=== PATIENT | female | born 1940 | race Caucasian/White ===

== ENCOUNTER → 2016-06-21 | Outpatient (REF) | payer MEDICARE ==
[~2016-06-21] MED LIST: ACET50TA PO; ACET65TA PO; ALBU17IN INH; ALBU83IN IN; ALPR0.25 PO; ANTI25TA PO; BISO10TA2 OR; BISO5TAB5 PO; BISOPROLOL PO; COLA100C2 OR; COLA50CA3 PO; DRISDOL; FLON0.05; IBUP200T2 PO; IBUP600T OR; LIPI10TA OR; MIRA255PW PO; MIRALEX PO; NEUPOGEN SC; OMEP20CA3 PO; OMEP20TA7 OR; ONDA2VL IV; PERC5TAB8 PO; VITAMIN D PO; XANA0.25 PO; [UNRECOGNIZED DRUG - CODE] SQ
== END ==
LOC: M LAB REF 12:17
PROVIDERS: ATTEND Internal Medicine Medical Oncology
DX: C57.00 Malignant neoplasm of unspecified fallopian tube (principal)

== ENCOUNTER → 2016-07-18 | Outpatient (REF) | payer MEDICARE | LOC: M LAB REF 16:31 | PROVIDERS: ATTEND Internal Medicine Medical Oncology | DX: C57.00 Malignant neoplasm of unspecified fallopian tube (principal) ==

== ENCOUNTER → 2016-07-28 | Outpatient (CLI) | payer MEDICARE ==
[~2016-07-28] MED LIST changes: +GASTROGRAFIN SOLUTION 30ML (Q9963) As Ordered ONE; +ISOVUE-370 76% 100ML VIAL (Q9967) As Ordered ONE
--- NOTE | 2016-07-28 17:51 | REP ---
CT ABDOMEN AND PELVIS WITH AND WITHOUT CONTRAST: TECHNIQUE: Axial noncontrast images through the abdomen followed by contrast-enhanced images through the abdomen and pelvis using 100 mL Isovue 370 intravenous contrast material, with coronal and sagittal reformations. COMPARISON: 01/01/2016 and 06/19/2015. In the visualized lung bases 2 ill-defined nodular opacities in the right lower lobe are unchanged. No new abnormalities opacities are seen. The liver demonstrates no mass. Dilated common bile duct is unchanged. The pancreatic duct is dilated in the region of the head of the pancreas, unchanged. The spleen, adrenals, pancreas and left kidney are otherwise unremarkable. There appears to be a tiny cyst in the mid right kidney. There is no hydroureteronephrosis. There is no abdominal aortic aneurysm. There is no free air or free fluid. There is no bowel wall thickening. Two small midline anterior abdominal wall hernias are seen just above the umbilicus. These were present on the prior study. Scattered diverticula are seen of the colon without acute diverticulitis. In the pelvis there is enlarged lymph node along the left pelvic sidewall 1.3 cm in diameter. This has increased in size since the 01/01/2016 exam. At that time it was less than 1 cm in short axis. That same lymph node was enlarged on the 06/19/2015 exam, measuring about 1.5 cm. No other adenopathy is seen and there is no other evidence of pelvic mass. Urinary bladder is mildly distended and grossly unremarkable. IMPRESSION: Enlarged lymph node along the left pelvic sidewall measures 1.[address] exam of 01/01/2016 it was less than 1 cm. On the exam of 06/19/2015 it was 1.5 cm. No other evidence of new adenopathy or mass. The remainder of the exam is stable. Signed by Silas Castellanos MD 07/29/2016 03:19 P
== END ==
LOC: M RAD 14:30
PROVIDERS: ATTEND Advanced Practice Midwife
DX: Z51.89 Encounter for other specified aftercare (principal); Z85.44 Personal history of malignant neoplasm of other female genital organs; R59.0 Localized enlarged lymph nodes
CPT/HCPCS: 74178; Q9963; Q9967

== ENCOUNTER → 2016-08-02 | Outpatient (REF) | payer MEDICARE ==
[~2016-08-02] MED LIST changes: -GASTROGRAFIN SOLUTION 30ML (Q9963) As Ordered ONE; -ISOVUE-370 76% 100ML VIAL (Q9967) As Ordered ONE
== END ==
LOC: M LAB REF 16:26
PROVIDERS: ATTEND Internal Medicine Medical Oncology
DX: C79.61 Secondary malignant neoplasm of right ovary (principal); C77.5 Secondary and unspecified malignant neoplasm of intrapelvic lymph nodes; C78.00 Secondary malignant neoplasm of unspecified lung; C78.6 Secondary malignant neoplasm of retroperitoneum and peritoneum; C57.01 Malignant neoplasm of right fallopian tube

== ENCOUNTER → 2016-08-30 | Outpatient (REF) | payer MEDICARE | LOC: M LAB REF 17:04 | PROVIDERS: ATTEND Internal Medicine Medical Oncology | DX: C57.00 Malignant neoplasm of unspecified fallopian tube (principal) ==

== ENCOUNTER → 2016-09-19 | Outpatient (CLI) | payer MEDICARE ==
--- NOTE | 2016-09-19 15:46 | REPMRS ---
Patient History The patient states she had a clinical breast exam in Patient is postmenopausal and has history of ovarian cancer. Family history of breast cancer in sister at age 50 or over and breast cancer in mother under age 50. Digital Woman Screen Mammo: September 19, 2016 - Exam #: [id number] Bilateral CC and MLO view(s) were taken. Technologist: Lorenza Graves, Technologist Prior study comparison: July 01, 2015, right breast digital mammo diagnostic unilateral, performed at [facility]. June 22, 2015, digital woman screen mammo performed at [facility]. June 18, 2014, bilateral digital mammo screening bilat, performed at [facility]. FINDINGS: There are scattered fibroglandular densities. There is an [id number] projecting over the right axilla. There has been no change in the appearance of the mammogram from the prior studies. There is a mild amount of scattered fibroglandular density which is fairly symmetric. There is no interval development of dominant mass, architectural distortion, or clustered microcalcification suggestive of malignancy. ASSESSMENT: BI-RADS/ACR category 1 mammogram. Negative. Recommendation Routine screening mammogram in 1 year (for women over age 40). This mammogram was interpreted with the aid of an FDA-approved computer-aided dectection system. Electronically Signed By: Chong Hamilton MD 09/19/16 [id number]
--- NOTE | 2016-09-21 09:59 | DEXA ---
AP SPINE L1 - L4 0.934 -2.1 0.0 LT FEMUR TOTAL 0.859 -1.2 0.9 RT FEMUR TOTAL 0.854 -1.2 0.9 TOTAL BODY TOTAL OTHER DUAL FEMUR FRAX* ASSESSMENT Risk factors: Premature menopause. 10 year probability of fracture Major osteoporotic fracture 15.8 % Hip fracture 4.7 % COMMENTS: There is low bone density of the spine and hips. FOLLOW-UP: Recommendation for the next bone density exam: 2 years. МАРИНАD
== END ==
LOC: M WHC 14:55
PROVIDERS: ATTEND Internal Medicine Medical Oncology
DX: Z12.31 Encounter for screening mammogram for malignant neoplasm of breast (principal); M85.80 Other specified disorders of bone density and structure, unspecified site; M81.0 Age-related osteoporosis without current pathological fracture
CPT/HCPCS: 77080; G0202

== ENCOUNTER → 2016-09-23 | Outpatient (REF) | payer MEDICARE ==
[2016-09-23 10:59] LABS: ALBUMIN 3.7 GM/DL (3.2-5.2); ALBUMIN/GLOBULIN RATIO 1.09 (1.00-1.93); ALKALINE PHOSPHATASE 59 U/L (45-117); ALT/SGPT 22 U/L (12-78); ANION GAP 5 MEQ/L (8-16); AST/SGOT 14 U/L (15-37); BILIRUBIN,TOTAL 0.4 MG/DL (0.2-1.0); BLOOD UREA NITROGEN 23 MG/DL (7-18); CALCIUM LEVEL 9.3 MG/DL (8.8-10.2); CARBON DIOXIDE LEVEL 31 MEQ/L (21-32); CHLORIDE LEVEL 104 MEQ/L (98-107); CHOLESTEROL LEVEL 248 MG/DL (<200); CREATININE FOR GFR 0.77 MG/DL (0.55-1.02); GLOMERULAR FILTRATION RATE > 60.0 (>39); GLUCOSE, FASTING 103 MG/DL (83-110); POTASSIUM SERUM 4.2 MEQ/L (3.5-5.1); SODIUM LEVEL 140 MEQ/L (136-145); TOTAL PROTEIN 7.1 GM/DL (6.4-8.2); TRIGLYCERIDES LEVEL 130 MG/DL (<150)
== END ==
LOC: M SFHCPLAZ 08:52
PROVIDERS: ATTEND Internal Medicine
DX: R73.01 Impaired fasting glucose (principal); E78.00 Pure hypercholesterolemia, unspecified

== ENCOUNTER → 2016-09-27 | Outpatient (REF) | payer MEDICARE | LOC: M LAB REF 16:36 | PROVIDERS: ATTEND Internal Medicine Medical Oncology | DX: C57.00 Malignant neoplasm of unspecified fallopian tube (principal) ==

== ENCOUNTER → 2016-11-01 | Outpatient (REF) | payer MEDICARE | LOC: M LAB REF 17:29 | PROVIDERS: ATTEND Internal Medicine Medical Oncology | DX: C56.9 Malignant neoplasm of unspecified ovary (principal) ==

== ENCOUNTER → 2016-11-10 | Outpatient (CLI) | payer MEDICARE ==
[~2016-11-10] MED LIST changes: +GASTROGRAFIN SOLUTION 30ML (Q9963) As Ordered ONE; +ISOVUE-370 76% 100ML VIAL (Q9967) As Ordered ONE
--- NOTE | 2016-11-10 15:09 | REP ---
CT of the abdomen pelvis without and with IV contrast and with bowel contrast, multiphase imaging: Comparison is 07/28/2016. On the comparison study where there was a 13 mm lymph node along the left pelvic sidewall. This lymph node today measures 19 x 21 mm. There is no other pelvic adenopathy. There is no pelvic ascites. There is diverticulosis of the descending colon, sigmoid colon, transverse colon as previously without diverticulitis. Within the visualized lung kirkpatrick, there are are two nodular densities in the right lower lobe, unchanged. The hepatic parenchyma is homogeneous on all phases of the study. The gallbladder surgically absent. There is compensatory dilatation of the common duct as previously. The pancreatic duct is mildly dilated as previously. The spleen, adrenals and kidneys are unchanged unremarkable. The abdominal aorta is unchanged unremarkable. There is no mesenteric adenopathy or ascites. There is no bowel distension. The bladder is unremarkable. Vaginal cuff and adnexa are unremarkable. Impression: The patient's known enlarged pelvic left sidewall lymph node has increased in size. There is no other interval change. Signed by Silas Mckeon MD 11/10/2016 03:00 P
== END ==
LOC: M RAD 11:01
PROVIDERS: ATTEND Internal Medicine Medical Oncology
DX: C57.00 Malignant neoplasm of unspecified fallopian tube (principal)
CPT/HCPCS: 74178; Q9963; Q9967

== ENCOUNTER → 2017-01-02 | Outpatient (REF) | payer MEDICARE ==
[~2017-01-02] MED LIST changes: -GASTROGRAFIN SOLUTION 30ML (Q9963) As Ordered ONE; -ISOVUE-370 76% 100ML VIAL (Q9967) As Ordered ONE
== END ==
LOC: M LAB REF 17:12
PROVIDERS: ATTEND Internal Medicine Medical Oncology
DX: C57.00 Malignant neoplasm of unspecified fallopian tube (principal)

== ENCOUNTER → 2017-01-25 | Outpatient (REF) | payer MEDICARE ==
[2017-01-25 12:07] LABS: ALBUMIN 3.7 GM/DL (3.2-5.2); ALBUMIN/GLOBULIN RATIO 1.06 (1.00-1.93); ALKALINE PHOSPHATASE 70 U/L (45-117); ALT/SGPT 22 U/L (12-78); ANION GAP 4 MEQ/L (8-16); AST/SGOT 17 U/L (15-37); BILIRUBIN,TOTAL 0.3 MG/DL (0.2-1.0); BLOOD UREA NITROGEN 13 MG/DL (7-18); CARBON DIOXIDE LEVEL 32 MEQ/L (21-32); CHLORIDE LEVEL 106 MEQ/L (98-107); CHOLESTEROL LEVEL 260 MG/DL (<200); GLOMERULAR FILTRATION RATE > 60.0 (>39); GLUCOSE, FASTING 100 MG/DL (83-110); POTASSIUM SERUM 4.2 MEQ/L (3.5-5.1); SODIUM LEVEL 142 MEQ/L (136-145); TOTAL PROTEIN 7.2 GM/DL (6.4-8.2); TRIGLYCERIDES LEVEL 208 MG/DL (<150)
== END ==
LOC: M SFHCPLAZ 09:02
PROVIDERS: ATTEND Internal Medicine
DX: R03.0 Elevated blood-pressure reading, without diagnosis of hypertension (principal); R73.01 Impaired fasting glucose; E78.00 Pure hypercholesterolemia, unspecified

== ENCOUNTER → 2017-01-31 | Outpatient (REF) | payer MEDICARE | LOC: M LAB REF 17:10 | PROVIDERS: ATTEND Internal Medicine Medical Oncology | DX: C57.00 Malignant neoplasm of unspecified fallopian tube (principal) ==

== ENCOUNTER → 2017-02-28 | Outpatient (REF) | payer MEDICARE | LOC: M LAB REF 17:33 | PROVIDERS: ATTEND Internal Medicine Medical Oncology | DX: C57.00 Malignant neoplasm of unspecified fallopian tube (principal) ==

== ENCOUNTER → 2017-03-30 | Outpatient (REF) | payer MEDICARE | LOC: M LAB REF 18:18 | PROVIDERS: ATTEND Internal Medicine Medical Oncology | DX: C57.00 Malignant neoplasm of unspecified fallopian tube (principal) ==

== ENCOUNTER → 2017-04-24 | Outpatient (CLI) | payer MEDICARE ==
[~2017-04-24] MED LIST changes: -ACET50TA PO; -ACET65TA PO; -ALBU17IN INH; -ALBU83IN IN; -ALPR0.25 PO; -ANTI25TA PO; -BISO10TA2 OR; -BISO5TAB5 PO; -BISOPROLOL PO; -COLA100C2 OR; -COLA50CA3 PO; -DRISDOL; -FLON0.05; +GASTROGRAFIN SOLUTION 30ML (Q9963) As Ordered; -IBUP200T2 PO; -IBUP600T OR; +ISOVUE-370 76% 100ML VIAL (Q9967) As Ordered; -LIPI10TA OR; -MIRA255PW PO; -MIRALEX PO; -NEUPOGEN SC; -OMEP20CA3 PO; -OMEP20TA7 OR; -ONDA2VL IV; -PERC5TAB8 PO; -VITAMIN D PO; -XANA0.25 PO; -[UNRECOGNIZED DRUG - CODE] SQ
== END ==
LOC: M RAD 11:44
DX: C57.00 Malignant neoplasm of unspecified fallopian tube (principal)
CPT/HCPCS: Q9963

== ENCOUNTER → 2017-05-01 | Outpatient (REF) | payer MEDICARE ==
[2017-05-02 10:13] LABS: CA 125 9.7 U/ML (<30.2)
== END ==
LOC: M LAB REF 16:54
DX: C57.00 Malignant neoplasm of unspecified fallopian tube (principal)
CPT/HCPCS: 86304

== ENCOUNTER → 2017-05-29 | Outpatient (REF) | payer MEDICARE ==
[2017-05-30 10:27] LABS: CA 125 10.4 U/ML (<30.2)
== END ==
LOC: M LAB REF 19:03
DX: C57.00 Malignant neoplasm of unspecified fallopian tube (principal)
CPT/HCPCS: 86304

== ENCOUNTER → 2017-06-26 | Outpatient (REF) | payer MEDICARE ==
[2017-06-27 10:24] LABS: CA 125 15.1 U/ML (<30.2)
== END ==
LOC: M LAB REF 17:21
DX: C57.00 Malignant neoplasm of unspecified fallopian tube (principal)
CPT/HCPCS: 86304

== ENCOUNTER → 2017-08-08 | Outpatient (REF) | payer MEDICARE ==
[2017-08-11 15:42] LABS: CA 125 23.7 U/ML (<30.2)
== END ==
LOC: M LAB REF 17:24
DX: C57.00 Malignant neoplasm of unspecified fallopian tube (principal)
CPT/HCPCS: 86304

== ENCOUNTER → 2017-08-17 | Outpatient (REF) | payer MEDICARE ==
[2017-08-17 12:58] LABS: ALBUMIN 3.7 GM/DL (3.2-5.2); ALBUMIN/GLOBULIN RATIO 1.16 (1.00-1.93); ALKALINE PHOSPHATASE 69 U/L (45-117); ALT/SGPT 17 U/L (12-78); ANION GAP 5 MEQ/L (8-16); AST/SGOT 16 U/L (7-37); BILIRUBIN,TOTAL 0.4 MG/DL (0.2-1.0); BLOOD UREA NITROGEN 15 MG/DL (7-18); CALCIUM LEVEL 9.1 MG/DL (8.8-10.2); CARBON DIOXIDE LEVEL 29 MEQ/L (21-32); CHLORIDE LEVEL 108 MEQ/L (98-107); CHOLESTEROL LEVEL 247 MG/DL (<200); CHOLESTEROL RISK RATIO 3.983 (<5); CREATININE FOR GFR 0.73 MG/DL (0.55-1.30); GLOMERULAR FILTRATION RATE > 60.0 (>39); GLUCOSE, FASTING 103 MG/DL (70-100); HDL CHOLESTEROL 62 MG/DL (>40); LDL CHOLESTEROL 156.2 MG/DL (<100); NON-HDL-C 185 MG/DL; POTASSIUM SERUM 4.4 MEQ/L (3.5-5.1); SODIUM LEVEL 142 MEQ/L (136-145); TOTAL PROTEIN 6.9 GM/DL (6.4-8.2); TRIGLYCERIDES LEVEL 144 MG/DL (<150)
[2017-08-17 14:15] LABS: ESTIMATED AVERAGE GLUCOSE 123 MG/DL (60-110); HEMOGLOBIN A1c 5.9 %
== END ==
LOC: M SFHCPLAZ 09:41
DX: C56.9 Malignant neoplasm of unspecified ovary (principal); R73.01 Impaired fasting glucose; E78.00 Pure hypercholesterolemia, unspecified
CPT/HCPCS: 80053

== ENCOUNTER → 2017-09-04 | Outpatient (REF) | payer MEDICARE ==
[2017-09-05 09:29] LABS: CA 125 33.5 U/ML (<30.2)
== END ==
LOC: M LAB REF 17:43
DX: C57.01 Malignant neoplasm of right fallopian tube (principal)
CPT/HCPCS: 86304

== ENCOUNTER → 2017-10-10 | Outpatient (CLI) | payer MEDICARE | LOC: M PLARAD 09:28 | DX: C57.01 Malignant neoplasm of right fallopian tube (principal); C57.00 Malignant neoplasm of unspecified fallopian tube (principal); Z79.899 Other long term (current) drug therapy | CPT/HCPCS: 78815 ==

== ENCOUNTER → 2017-10-26 | Outpatient (REF) | payer MEDICARE ==
[2017-10-27 10:45] LABS: CA 125 41.4 U/ML (<30.2)
== END ==
LOC: M LAB REF 17:44
DX: Z51.81 Encounter for therapeutic drug level monitoring (principal); C57.01 Malignant neoplasm of right fallopian tube; C79.61 Secondary malignant neoplasm of right ovary; C77.5 Secondary and unspecified malignant neoplasm of intrapelvic lymph nodes; Z79.899 Other long term (current) drug therapy
CPT/HCPCS: 86304

== ENCOUNTER → 2018-01-23 | Outpatient (CLI) | payer MEDICARE | LOC: M PLARAD 08:24 | DX: C57.01 Malignant neoplasm of right fallopian tube (principal) | CPT/HCPCS: 78815 ==

== ENCOUNTER → 2018-02-21 | Outpatient (REF) | payer MEDICARE ==
[2018-02-21 12:27] LABS: ALBUMIN 3.5 GM/DL (3.2-5.2); ALBUMIN/GLOBULIN RATIO 1.13 (1.00-1.93); ALKALINE PHOSPHATASE 68 U/L (45-117); ALT/SGPT 19 U/L (12-78); ANION GAP 6 MEQ/L (8-16); AST/SGOT 14 U/L (7-37); BILIRUBIN,TOTAL 0.4 MG/DL (0.2-1.0); BLOOD UREA NITROGEN 14 MG/DL (7-18); CALCIUM LEVEL 8.8 MG/DL (8.8-10.2); CARBON DIOXIDE LEVEL 30 MEQ/L (21-32); CHLORIDE LEVEL 106 MEQ/L (98-107); CHOLESTEROL LEVEL 191 MG/DL (<200); CHOLESTEROL RISK RATIO 3.183 (<5); CREATININE FOR GFR 0.68 MG/DL (0.55-1.30); GLOMERULAR FILTRATION RATE > 60.0 (>39); GLUCOSE, FASTING 99 MG/DL (70-100); HDL CHOLESTEROL 60 MG/DL (>40); LDL CHOLESTEROL 97 MG/DL (<100); NON-HDL-C 131 MG/DL; POTASSIUM SERUM 4.2 MEQ/L (3.5-5.1); SODIUM LEVEL 142 MEQ/L (136-145); TOTAL PROTEIN 6.6 GM/DL (6.4-8.2); TRIGLYCERIDES LEVEL 168 MG/DL (<150)
[2018-02-21 13:34] LABS: ESTIMATED AVERAGE GLUCOSE 126 MG/DL (60-110)
== END ==
LOC: M SFHCPLAZ 08:31
DX: R73.01 Impaired fasting glucose (principal); E78.00 Pure hypercholesterolemia, unspecified
CPT/HCPCS: 80053

== ENCOUNTER → 2018-07-18 | Outpatient (CLI) | payer MEDICARE ==
[~2018-07-18] MED LIST changes: +8 HO650T2 PO; +ACET65TA PO; +ALBU17IN INH; +ALBU83IN IN; +ALPR0.25 PO; +ANTI25TA PO; +ATOR1TAB19 PO; +BISO10TA2 OR; +BISO5TAB5 PO; +BISOPROLOL PO; +CBD OIL; +COLA100C2 OR; +COLA50CA3 PO; +CYCL1CAP2 PO; +DRISDOL; +FLON0.05; +FLUTISP NARES; -GASTROGRAFIN SOLUTION 30ML (Q9963) As Ordered; +IBUP200C25 PO; +IBUP200T2 PO; +IBUP600T OR; -ISOVUE-370 76% 100ML VIAL (Q9967) As Ordered; +LIPI10TA OR; +MAPA500T17 PO; +MIRALEX PO; +NEUPOGEN SC; +OMEP20CA3 PO; +OMEP20TA7 OR; +OMEP20TA9 PO; +ONDA2VL IV; +PERC5TAB8 PO; +POLY1POW4 PO; +PROAAER10 INH; +VITAMIN D PO; +XANA0.25 PO; +[UNRECOGNIZED DRUG - CODE] SQ
--- NOTE | 2018-07-18 12:49 | REP ---
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 COMPARISONS: Comparison PET/CT studies are reviewed from January 23, 2018 and October 10, 2017. TECHNIQUE: 48 minutes following the intravenous injection of a 9.33 mCi dose of F-18 FDG, three-dimensional PET scintigraphy is acquired from the skull base to the proximal thighs. Triplanar noncontrast CT scanning is acquired through the same anatomic range for attenuation correction, and image registration with scan parameters optimized to minimize radiation exposure to the patient. PET scintigraphy and CT datasets were fused and displayed on a workstation with multiplanar and projection display capability. PET/CT FINDINGS: The two previously noted foci of hypermetabolic paulo uptake are again seen essentially unchanged in size. They remain hypermetabolic. The left pelvic sidewall node is 1.9 cm in greatest diameter today and has a maximum standard uptake value of 18.1, previously 15. Uptake in the right superior mediastinal lymph node is mildly hypermetabolic with maximum standard uptake value 3.81 today. Previously this maximum standard uptake value was 6.2. No new hypermetabolic uptake focus is appreciated. The scan is otherwise unremarkable. IMPRESSION: Findings are essentially unchanged from the most recent prior PET/CT study. Two foci of hypermetabolic paulo uptake are again seen. Electronically Signed by Ricardo Hamilton MD 07/18/2018 02:53 P
== END ==
LOC: M PLARAD 08:11
PROVIDERS: ATTEND Nurse Practitioner Family
DX: C57.01 Malignant neoplasm of right fallopian tube (principal)
CPT/HCPCS: 78815; A9552

== ENCOUNTER → 2019-01-01 | Outpatient (REF) | payer MEDICARE ==
[2019-01-01 10:58] LABS: ALBUMIN 3.7 GM/DL (3.2-5.2); ALT/SGPT 19 U/L (12-78); BILIRUBIN,TOTAL 0.4 MG/DL (0.2-1.0); BLOOD UREA NITROGEN 17 MG/DL (7-18); CALCIUM LEVEL 9.5 MG/DL (8.8-10.2); CARBON DIOXIDE LEVEL 28 MEQ/L (21-32); CHLORIDE LEVEL 104 MEQ/L (98-107); CHOLESTEROL LEVEL 224 MG/DL (<200); CHOLESTEROL RISK RATIO 3.555 (<5); CREATININE FOR GFR 0.72 MG/DL (0.55-1.30); GLOMERULAR FILTRATION RATE > 60.0 (>39); GLUCOSE, FASTING 101 MG/DL (70-100); HDL CHOLESTEROL 63 MG/DL (>40); LDL CHOLESTEROL 135 MG/DL (<100); NON-HDL-C 161 MG/DL; POTASSIUM SERUM 4.2 MEQ/L (3.5-5.1); SODIUM LEVEL 141 MEQ/L (136-145); TOTAL PROTEIN 6.8 GM/DL (6.4-8.2); TRIGLYCERIDES LEVEL 128 MG/DL (<150)
[2019-01-01 11:03] LABS: TOTAL 25(OH) VITAMIN D 61.8 NG/ML (30.0-100.0)
== END ==
LOC: M SFHCPLAZ 08:22
PROVIDERS: ATTEND Internal Medicine
DX: C56.9 Malignant neoplasm of unspecified ovary (principal); E78.00 Pure hypercholesterolemia, unspecified; E55.9 Vitamin D deficiency, unspecified; Z79.899 Other long term (current) drug therapy

== ENCOUNTER → 2019-01-22 | Outpatient (CLI) | payer MEDICARE ==
--- NOTE | 2019-01-22 17:53 | REP ---
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 Comparison is the most recent prior PET scan dated 01/23/2018. Whole-body scanning is performed from skull base to the upper thighs. Neck and supraclavicular areas: There are no hypermetabolic foci. This is unchanged. Chest: There is hypermetabolic uptake in a normal size right anterior mediastinal node as previously. The standard uptake value today is 7.32. On the comparison study the standard uptake value was 3.81. There are no other foci in the chest. This is unchanged. Abdomen, pelvis and upper thighs: Previously there was uptake in an enlarged left pelvic sidewall node. On the prior study the standard uptake value of 18.1. On the study today maximal standard uptake value in this node is 3.0. There are no other foci in the abdomen, pelvis or upper thighs. This is unchanged. Impression: There are two foci, as previously. The uptake in the right anterior mediastinal node has increased from the prior study. The uptake in the left pelvic sidewall node has decreased from the prior study. There are no other foci. The study is performed with 8.82 mCi of F 18 FDG. Electronically Signed by Silas Mckeon MD 01/22/2019 05:44 P
== END ==
LOC: M PLARAD 13:18
PROVIDERS: ATTEND Nurse Practitioner Family
DX: C57.01 Malignant neoplasm of right fallopian tube (principal)

== ENCOUNTER → 2019-09-10 | Outpatient (CLI) | payer MEDICARE ==
--- NOTE | 2019-09-10 17:21 | REP ---
PET/CT: HISTORY: Restaging right fallopian tube malignancy. COMPARISONS: Comparison PET/CT study, January 22, 2019. TECHNIQUE: 49 minutes following the intravenous injection of a 7.56 mCi dose of F-18 FDG, three-dimensional PET scintigraphy is acquired from the skull base to the proximal thighs. Triplanar noncontrast CT scanning is acquired through the same anatomic range for attenuation correction, and image registration with scan parameters optimized to minimize radiation exposure to the patient. PET scintigraphy and CT datasets were fused and displayed on a workstation with multiplanar and projection display capability. PET/CT FINDINGS: There is hypermetabolic uptake in the previously noted 8 mm right superior mediastinal lymph node. Maximum standard uptake value today in this small lymph node is 4.32. Previously on January 22, 2019, the uptake was higher, 7.32. No other abnormal hypermetabolic uptake is seen in the chest. The left pelvic lymphadenopathy is again seen. The largest soft tissue node here measures 2 cm in diameter. Maximum standard uptake value has increased since the last exam in this adenopathy focus. Maximum standard uptake value today is 13.84. On January 22, 2019, uptake here was much lower, 3.0. No other abnormal uptake is seen in the abdomen or pelvis. IMPRESSION: There is increased avidity and increase in size in the left pelvic sidewall adenopathy. Hypermetabolic uptake persists in the right superior mediastinal lymph node focus in an 8 mm lymph node. Electronically Signed by Ricardo Hamilton MD 09/10/2019 06:02 P
== END ==
LOC: M PLARAD 09:16
PROVIDERS: ATTEND Internal Medicine Medical Oncology
DX: C57.01 Malignant neoplasm of right fallopian tube (principal); R59.0 Localized enlarged lymph nodes
CPT/HCPCS: 78815; A9552

== ENCOUNTER → 2020-03-02 | Outpatient (CLI) | payer MEDICARE ==
[~2020-03-02] MED LIST changes: +AMLO2.5T3 PO
== END ==
LOC: M PLAIMG 12:31
PROVIDERS: ATTEND Nurse Practitioner Adult Health
DX: M54.2 Cervicalgia (principal)

== ENCOUNTER → 2020-04-28 | Outpatient (CLI) | payer MEDICARE | LOC: M PLARAD 10:28 | PROVIDERS: ATTEND Internal Medicine Medical Oncology | DX: C57.01 Malignant neoplasm of right fallopian tube (principal) | CPT/HCPCS: 78815; A9552 ==

== ENCOUNTER → 2020-05-07 | Outpatient (CLI) | payer MEDICARE ==
[~2020-05-07] MED LIST changes: +ONDA8TAB10 PO; +PROC10TA4 PO
--- NOTE | 2020-05-08 12:31 | ECHO ---
DATE OF PROCEDURE: 05/07/2020 Age: 80 Gender: Female Height: 150 cm Weight: 51 kg REFERRING PHYSICIAN: Allyson Kelly M.D. INDICATIONS: Pre-chemotherapy. MEASUREMENTS: IVS 0.7 cm LV 4.7 cm LVPW 1.0 cm LA 3.0 cm Aorta 2.8 cm RV 2.8 cm Left atrial volume index 26 mL/m2 IVC 0.9 Mitral E wave velocity 95 Mitral A wave 102 E prime septal 10.6 E prime lateral 7.0 FINDINGS: This study is of good technical quality. Underlying sinus rhythm. Left ventricle is of normal size and systolic function, estimated LVEF approximately 60%. I do not appreciate any segmental wall motion abnormalities. Right ventricle is also of normal size and systolic function. Both atria appear normal. The aortic valve is mildly sclerotic, but has three cusps and preserved mobility. Mitral, tricuspid, and pulmonic valves appear normal. No pericardial effusion is noted. Inferior vena cava is of normal size and appropriately collapses with inspiration indicative of normal central venous pressure. The aortic root, visualized segment of aortic arch, and abdominal aorta all appear normal. Doppler interrogation reveals no aortic stenosis and mild aortic insufficiency. There is also mild mitral and tricuspid insufficiency. Calculated pulmonary artery pressure is around 30 mmHg corresponding to borderline pulmonary hypertension. Mitral inflow pattern and tissue Doppler imaging of the mitral annulus revealed grade 1 diastolic dysfunction. CONCLUSIONS: 1. Study is of good technical quality, underlying sinus rhythm. 2. Normal LV size with preserved LV systolic function and grade 1 diastolic dysfunction. 3. Aortic sclerosis with no stenosis and mild insufficiency. 4. Mild mitral and tricuspid insufficiency. 5. Normal central venous pressure, borderline pulmonary hypertension. MTDD
== END ==
LOC: M CARPUL 12:13
PROVIDERS: ATTEND Internal Medicine Medical Oncology
DX: C56.9 Malignant neoplasm of unspecified ovary (principal); C57.00 Malignant neoplasm of unspecified fallopian tube; I35.8 Other nonrheumatic aortic valve disorders

== ENCOUNTER → 2020-06-10 | Outpatient (CLI) | payer MEDICARE ==
--- NOTE | 2020-06-10 14:16 | REP ---
INDICATION: PAIN, SWELLING LT LEG. COMPARISON: None. TECHNIQUE: Left lower extremity duplex venous ultrasound FINDINGS: The deep veins are anechoic and fully compressible from the groin to the popliteal fossa in the left lower extremity. Color flow imaging is homogeneous. Spectral Doppler interrogation demonstrates intact respiratory variation in flow and normal manual augmentation of flow. There is no evidence of deep vein thrombosis. IMPRESSION: Negative left lower extremity duplex venous ultrasound. No evidence of deep vein thrombosis. <Electronically signed by Chong Hamilton > 06/10/20 [id number]
== END ==
LOC: M RAD 13:28
PROVIDERS: ATTEND Internal Medicine Medical Oncology
DX: M79.605 Pain in left leg (principal)

== ENCOUNTER → 2020-10-30 | Outpatient (CLI) | payer MEDICARE ==
[~2020-10-30] MED LIST changes: +ACET-653 PO; +COVI100V IM; +ERGO500029 PO; +OMEP20TA2 PO; -OMEP20TA9 PO; +TRUFMIS MC
--- NOTE | 2020-10-30 20:00 | ECHO ---
ECHOCARDIOGRAM DATE OF PROCEDURE: 10/30/2020 Age: 80 Gender: Female Height: 150 cm Weight: 52 kg REFERRING PHYSICIAN: Allyson Kelly M.D. INDICATION: Ovarian cancer. MEASUREMENTS: IVS 1.0 cm LV 4.5 cm LVPW 0.9 cm LA 2.9 cm Aorta 3.3 cm Left atrium volume index 27 mL/m2 Mitral E velocity 74 cm/s A wave 86 cm/s E prime septal 6.1 cm/s E prime lateral 6.0 cm/s FINDINGS: This study is of acceptable technical quality even though visualization was somewhat limited. Underlying sinus rhythm. Normal left ventricular (LV) size with preserved LV systolic function, estimated ejection fraction (EF) 60-65%. Normal right ventricular (RV) size and systolic function. Both atria appear normal. Aortic valve is mildly sclerotic, but mobility is preserved. Mitral and tricuspid valves appear normal. Pulmonic valve was not well seen. No pericardial effusion is noted. Inferior vena cava was poorly visualized. Aortic root is normal. Aortic arch and abdominal aorta were not well seen. Doppler interrogation reveals no aortic stenosis and mild insufficiency. There is trace mitral and mild tricuspid insufficiency. Calculated pulmonary artery pressures are within normal limits, assuming normal central venous pressure. Mitral inflow pattern and tissue Doppler imaging of mitral annulus reveal grade 1 diastolic dysfunction. CONCLUSIONS: 1. Study is of fair technical quality, patient is in sinus rhythm. 2. Normal left ventricular (LV) size with normal LV systolic function and grade 1 diastolic dysfunction. 3. Aortic sclerosis resulting in mild insufficiency and no significant stenosis. 4. Trace mitral insufficiency. 5. Mild tricuspid insufficiency. 6. Unable to estimate central venous pressure, but likely normal pulmonary artery pressure. [facility]
== END ==
LOC: M CARPUL 11:53
PROVIDERS: ATTEND Internal Medicine Medical Oncology
DX: C79.61 Secondary malignant neoplasm of right ovary (principal)

== ENCOUNTER → 2020-11-13 | Outpatient (REF) | payer MEDICARE ==
[~2020-11-13] MED LIST changes: +MORP15TA2 PO
[2020-11-13 14:15] LABS: APPEARANCE, URINE CLEAR (CLEAR); BACTERIA, URINE AUTO NEGATIVE (NEGATIVE); BILIRUBIN, URINE AUTO NEGATIVE (NEGATIVE); BLOOD, URINE BLOOD 2+ (NEGATIVE); COLOR, URINE YELLOW (YELLOW); GLUCOSE, URINE (UA) AUTO NEGATIVE (NEGATIVE); KETONE, URINE AUTO NEGATIVE (NEGATIVE); LEUKOCYTE ESTERASE, URINE AUTO NEGATIVE (NEGATIVE); MUCUS, URINE SMALL (NEGATIVE); NITRITE, URINE AUTO NEGATIVE (NEGATIVE); PROTEIN, URINE AUTO NEGATIVE (NEGATIVE); RBC, URINE AUTO 1 /HPF (0-3); SPECIFIC GRAVITY URINE AUTO 1.005 (1.002-1.035); SQUAMOUS EPITHELIAL CELL UR AU 1 /HPF (0-6); UROBILINOGEN, URINE AUTO 0.2 mg/dL (0.0-2.0); WBC, URINE AUTO 3 /HPF (0-3)
== END ==
LOC: M SMT 13:02
PROVIDERS: ATTEND Urology
DX: N13.30 Unspecified hydronephrosis (principal); Z79.899 Other long term (current) drug therapy
CPT/HCPCS: 51798; 81001; 87086; G0463